=== PATIENT | female | born 1985 | race Caucasian/White ===

== ENCOUNTER → 2020-06-19 | Outpatient (CLI) | payer OTHER | END | disposition home or self-care (01) | LOC: RAD 09:33 | PROVIDERS: ATTEND Physician Assistant | DX: A04.9 Bacterial intestinal infection, unspecified (principal); R14.0 Abdominal distension (gaseous); R68.81 Early satiety; K59.00 Constipation, unspecified | CPT/HCPCS: 78264; A9541 ==